=== PATIENT | female | born 1980 | race Caucasian/White ===

== ENCOUNTER 2018-02-20 09:11 | Observation (INO) | payer MEDICAID, OTHER ==
[~2018-02-20] VITALS: Ht 160 cm; Wt 55.0 kg
[2018-02-20] MEDS ORDERED: SODIUM CHLORIDE 0.9% 1,000 ML IV ONE (09:42)
[2018-02-20] MEDS ORDERED: SODIUM CHLORIDE 0.9% 1,000ML IVBOLUS ONE (10:00)
[2018-02-20 10:20] LABS: ALANINE AMINOTRANSFERASE 17 U/L (12-78); ALBUMIN 3.8 g/dL (3.4-5.0); ANION GAP 10 mmol/L (5-15); CALCIUM 7.8 mg/dL (8.5-10.1); CHLORIDE 109 mmol/L (98-107); CREATININE 0.79 mg/dL (0.55-1.02); SALICYLATE LEVEL 19.2 mg/dL (2.8-20.0)
[2018-02-20 10:25] LABS: ACETAMINOPHEN 32 mcg/mL (10-30); ALKALINE PHOSPHATASE 48 U/L (45-117); BILIRUBIN,TOTAL 0.3 mg/dL (0.2-1.0); TOTAL PROTEIN 7.4 g/dL (6.4-8.2)
[2018-02-20 10:37] LABS: BASOPHILS # (AUTO) 0.02 x10^3/uL (0-0.1); BASOPHILS % (AUTO) 0 % (0-1); EOSINOPHILS % (AUTO) 0 % (1-7); LYMPHOCYTES # (AUTO) 0.57 x10^3/uL (1-3.4); LYMPHOCYTES % (AUTO) 5 % (22-44); MD NO; MEAN CORPUSCULAR HEMOGLOBIN 29.5 pg (27.0-34.8); MEAN CORPUSCULAR HGB CONC 33.4 g/dL (32.4-35.8); MEAN CORPUSCULAR VOLUME 88.3 fL (80-100); MEAN PLATELET VOLUME 8.5 fL (7.4-10.4); MONOCYTES # (AUTO) 0.25 x10^3/uL (0.2-0.8); MONOCYTES % (AUTO) 2 % (2-9); NEUTROPHILS # (AUTO) 10.62 x10^3/uL (1.8-6.8); NEUTROPHILS % (AUTO) 93 % (42-75); PLATELET COUNT 281 x10^3/uL (130-400); RED BLOOD COUNT 4.69 x10^6/uL (3.82-5.3); RED CELL DISTRIBUTION WIDTH 14.2 % (9.6-15.2)
[2018-02-20 12:52] LABS: SALICYLATE LEVEL 15.8 mg/dL (2.8-20.0)
[2018-02-20] MEDS ORDERED: ONDANSETRON ODT 4 MG PO ONE (14:30)
[2018-02-20] MEDS ORDERED: ONDANSETRON ODT 4 MG ONE (14:39)
[2018-02-20] MEDS ORDERED: LORazepam 2 MG/ML, 1ML ONE (15:55)
[2018-02-20] MEDS ORDERED: ZIPRASIDONE 20 MG INJ IM PRN (16:00)
[2018-02-20] MEDS ORDERED: LORazepam 2 MG/ML, 1ML IM PRN (16:00)
[2018-02-20] MEDS ORDERED: ZIPRASIDONE 20 MG INJ IM ONE (16:12)
[2018-02-20 17:10] LABS: MICROSCOPIC NOT IND
[2018-02-20 17:14] LABS: CULTURE INDICATED? NO
[2018-02-20 17:22] LABS: AMPHETAMINE SCREEN, URINE Negative (Negative); BARBITURATE SCREEN, URINE Negative (Negative); BENZODIAZEPINE SCREEN, URINE Negative (Negative); CANNABINOID SCREEN, URINE Negative (Negative); COCAINE SCREEN, URINE Negative (Negative); METHADONE SCREEN, URINE Negative (Negative); OPIATE SCREEN, URINE Negative (Negative)
[2018-02-21] MEDS ORDERED: DIPHENHYDRAMINE 50 MG CAPSULE PO PRN (13:30)
[2018-02-21] MEDS ORDERED: ZIPRASIDONE 20 MG INJ IM PRN (13:30)
[2018-02-21] MEDS ORDERED: QUETIAPINE 25MG TABLET PO PRN (13:30)
[2018-02-21] MEDS ORDERED: POLYETHYLENE GLYCOL 17 GM PACKET PO PRN (13:30)
[2018-02-21] MEDS ORDERED: ONDANSETRON ODT 4 MG PO PRN (13:30)
[2018-02-21] MEDS ORDERED: POTASSIUM CHLORIDE 20 MEQ TAB.ER.PRT PO ONE (13:30)
[2018-02-21] MEDS ORDERED: ACETAMINOPHEN 325 MG TABLET PO PRN (13:30)
[2018-02-21 14:57] VITALS: BP 130/89
[2018-02-21 20:52] VITALS: BP 132/81
[2018-02-22 07:33] VITALS: BP 92/54
[2018-02-22] MEDS ORDERED: BENZTROPINE 1 MG/ML, 2 ML IM PRN (14:30)
[2018-02-22] MEDS ORDERED: BENZTROPINE 1 MG TABLET PO PRN (14:30)
[2018-02-22] MEDS ORDERED: LURASIDONE 20 MG TABLET PO SCH (17:00)
[2018-02-22 19:45] VITALS: BP 110/71
[2018-02-23 07:30] VITALS: BP 127/84
[2018-02-23] MEDS ORDERED: LURASIDONE 20 MG TABLET PO SCH (17:00)
[2018-02-23 18:34] VITALS: BP 115/87
[2018-02-23 19:30] VITALS: BP 118/80
[2018-02-24] MEDS: ARIPIPRAZOLE 10 MG TABLET PO SCH (09:00)
[2018-02-24 09:15] VITALS: BP 123/89
[2018-02-24 20:56] VITALS: BP 106/66
[2018-02-25 07:35] VITALS: BP 129/82
[2018-02-25] MEDS: ARIPIPRAZOLE 10 MG TABLET PO SCH (09:00)
[2018-02-25 20:18] VITALS: BP 112/66
[2018-02-26 07:33] VITALS: BP 126/78
[2018-02-26] MEDS: ARIPIPRAZOLE 10 MG TABLET PO SCH (09:00)
[2018-02-26 20:00] VITALS: BP 110/75
[2018-02-26] MEDS ORDERED: QUETIAPINE 25MG TABLET PO SCH (21:00)
== END 2018-02-26 22:31 ==
LOC: ED 17:44 → EDIP 02-21 12:31 → 3E 02-21 14:15
PROVIDERS: ADMIT Internal Medicine Pulmonary Disease; ATTEND Internal Medicine Pulmonary Disease
DX: R45.851 Suicidal ideations (principal); E83.51 Hypocalcemia; E87.6 Hypokalemia; T39.1X2A Poisoning by 4-Aminophenol derivatives, intentional self-harm, initial encounter; F22 Delusional disorders; F41.9 Anxiety disorder, unspecified; F31.81 Bipolar II disorder; F33.2 Major depressive disorder, recurrent severe without psychotic features
CPT/HCPCS: 36415; 80053; 80307; 80329; 81003; 84703; 85025; 93005; 96360; 96361; 96372; 99285; G0378; J2060; J3486; J7030; Q0162; G0480